=== PATIENT | male | born 1965 | race Caucasian/White ===

== ENCOUNTER → 2016-09-09 | Outpatient (CLI) | payer BC ==
[2016-09-09 16:14] LABS: BUN 16 mg/dL (7-18)
[2016-09-09 16:15] LABS: GFR (ESTIMATED) 102 ML/MIN (>60)
== END ==
LOC: LAB 13:10
PROVIDERS: Internal Medicine Adolescent Medicine
DX: I10 Essential (primary) hypertension (principal)